=== PATIENT | male | born 1935 | race Caucasian/White ===

== ENCOUNTER 2022-04-12 22:18 | Observation (INO) | payer MEDICARE, OTHER ==
[2022-04-13] MEDS ORDERED: Benzonatate 100 MG CAP ONE (01:40)
[2022-04-13 04:24] VITALS: BMI 32.8
[2022-04-13] MEDS ORDERED: Sodium Chloride 0.9% 1,000 ML IV SCH (05:00)
[2022-04-13] MEDS ORDERED: Ondansetron ODT 4 MG TAB PO PRN (10:45)
[2022-04-13] MEDS ORDERED: Ondansetron PF 4 MG/2 ML Vial IVP PRN (10:45)
[2022-04-13] MEDS ORDERED: Acetaminophen 325 MG TAB PO PRN (10:45)
[2022-04-13] MEDS ORDERED: Ventolin HFA Inhaler 60 PUFF INHALER INH PRN (10:54)
[2022-04-13] MEDS: Enoxaparin Sodium 40 MG/0.4 ML SYRINGE SC SCH (11:13)
[2022-04-13] MEDS: Donepezil HCl 5 MG TAB PO SCH ×2 (11:14→17:33)
[2022-04-13] MEDS: Benzonatate 100 MG CAP PO PRN (11:14)
[2022-04-13 11:31] LABS: Hemoglobin 13.7 g/dL (13.5-17.5); Mean Corpuscular HGB CONC 34.3 g/dL (32.0-36.0); Mean Corpuscular Hemoglobin 33.8 pg (27.0-33.0); Mean Corpuscular Volume 98.5 fl (81.2-95.1); Mean Platelet Volume 10.3 fl (7.4-10.4); Platelet Count 196 10x3/uL (150-450); RBC Distribution Width 13.2 % (11.5-14.5); Red Blood Cell (RBC) Count 4.05 10x6/uL (4.32-5.72); White Blood Cell (WBC) Count 7.1 10x3/uL (3.5-10.5)
[2022-04-13 11:32] LABS: MDiff Complete? YES
[2022-04-13 11:54] LABS: ALT (SGPT) 16 U/L (8-55); AST (SGOT) 25 U/L (5-34); Albumin 3.8 g/dL (3.4-4.8); Alkaline Phosphatase 65 U/L (40-110); Anion Gap 10 mmol/L (10-20); BUN (Urea Nitrogen) 16 mg/dL (8.4-25.7); Bilirubin, Total 0.5 mg/dL (0.2-1.2); CRP (Inflammatory) 5.52 mg/dL (= or < 0.5); Calc. Creatinine Clearance 95 mL/min (70-130); Calcium 8.2 mg/dL (7.8-10.44); Carbon Dioxide 22 mmol/L (23-31); Chloride 107 mmol/L (98-107); Estimated GFR 88; Globulin 3.1 g/dL (2.4-3.5); Glucose 86 mg/dL (83-110); Potassium 4.1 mmol/L (3.5-5.1); Protein, Total 6.9 g/dL (5.8-8.1); Sodium 135 mmol/L (136-145)
[2022-04-13 13:53] LABS: Band 6 % (5-11); Lymphocytes 13 % (21-51); Monocytes 9 % (0-10); Neutrophil 69 % (42-75); Platelet Morphology Comment Appears Adequate; Reactive Lymphocytes 2 % (0-10)
[2022-04-13 13:54] LABS: RBC Morphology Normal
[2022-04-13] MEDS: busPIRone HCl 5 MG TAB PO SCH (22:10)
[2022-04-13] MEDS: Cholecalciferol 1,000 UNITS (25 MCG) TAB PO SCH (22:10)
[2022-04-13] MEDS: Azelastine 137 MCG/Spray 30 ML NS SCH (22:11)
[2022-04-13] MEDS: Fluticasone Propionate Nasal Spray 16 gm Bottle NASAL SCH (22:14)
[2022-04-13] MEDS: Triamcinolone 0.1% Dental Paste 5 GM TUBE TOP SCH (22:15)
[2022-04-14 04:55] LABS: Bilirubin Neg (Negative); Blood, Urine Negative (Negative); Clarity Clear (Clear); Glucose, Urine (Dipstick) Normal (Negative); Ketone, Urine Negative (Negative); Leukocyte Negative (Negative); Nitrite Negative (Negative); Protein, Urine (Dipstick) Negative (Neg-Trace); Specific Gravity, Urine 1.015 (1.005-1.030); Urobilinogen Normal mg/dL (Less than 2)
[2022-04-14 05:05] LABS: Bacteria/HPF None Seen HPF (None Seen); RBC/HPF None Seen HPF (0-3); Squamous Epithelial None Seen HPF (0-3); WBC/HPF None Seen HPF (0-3)
[2022-04-14 06:03] LABS: Hemoglobin 13.2 g/dL (13.5-17.5); Mean Corpuscular HGB CONC 35.8 g/dL (32.0-36.0); Mean Corpuscular Hemoglobin 34.2 pg (27.0-33.0); Mean Corpuscular Volume 95.6 fl (81.2-95.1); Mean Platelet Volume 10.4 fl (7.4-10.4); Platelet Count 174 10x3/uL (150-450); RBC Distribution Width 13.1 % (11.5-14.5); Red Blood Cell (RBC) Count 3.86 10x6/uL (4.32-5.72); White Blood Cell (WBC) Count 6.6 10x3/uL (3.5-10.5)
[2022-04-14 06:10] LABS: Anion Gap 12 mmol/L (10-20); BUN (Urea Nitrogen) 12 mg/dL (8.4-25.7); Calc. Creatinine Clearance 105 mL/min (70-130); Calcium 7.9 mg/dL (7.8-10.44); Carbon Dioxide 20 mmol/L (23-31); Chloride 110 mmol/L (98-107); Estimated GFR 90; Glucose 85 mg/dL (83-110); Potassium 3.6 mmol/L (3.5-5.1); Sodium 138 mmol/L (136-145)
[2022-04-14 06:19] LABS: MDiff Complete? YES
[2022-04-14 06:24] LABS: Lymphocytes 20 % (21-51); Monocytes 17 % (0-10); Neutrophil 62 % (42-75)
[2022-04-14] MEDS: Donepezil HCl 5 MG TAB PO SCH ×3 (08:42→16:46)
[2022-04-14] MEDS: Triamcinolone 0.1% Dental Paste 5 GM TUBE TOP SCH ×3 (08:42→22:27)
[2022-04-14] MEDS: Enoxaparin Sodium 40 MG/0.4 ML SYRINGE SC SCH (08:42)
[2022-04-14] MEDS: busPIRone HCl 5 MG TAB PO SCH ×2 (08:42→21:50)
[2022-04-14] MEDS: Zinc Sulfate 220 MG CAP PO SCH (08:42)
[2022-04-14] MEDS: Aspirin 81 mg Enteric Coated Tablet PO SCH (08:42)
[2022-04-14] MEDS: Ascorbic Acid 500 mg Chewable Tablet PO SCH (08:42)
[2022-04-14] MEDS ORDERED: [UNRECOGNIZED DRUG - OTHER] PO SCH (09:00)
[2022-04-14] MEDS: Cholecalciferol 1,000 UNITS (25 MCG) TAB PO SCH (21:50)
[2022-04-14] MEDS: Azelastine 137 MCG/Spray 30 ML NS SCH (22:27)
[2022-04-14] MEDS: Fluticasone Propionate Nasal Spray 16 gm Bottle NASAL SCH (22:27)
[2022-04-15 07:00] LABS: #Eosinphils 0.1 10x3/uL (0.0-0.5); #Monocytes 0.9 10x3/uL (0.0-1.1); #Neutrophils 4.1 10x3/uL (1.5-8.4); %Basophils 0.4 % (0.0-2.0); %Eosinophils 0.7 % (0.0-6.0); %Lymphocytes 25.8 % (18.0-47.0); %Monocytes 13.2 % (0.0-10.0); %Neutrophils 59.6 % (40.0-75.0); Hemoglobin 14.1 g/dL (13.5-17.5); Mean Corpuscular HGB CONC 35.6 g/dL (32.0-36.0); Mean Corpuscular Hemoglobin 33.6 pg (27.0-33.0); Mean Corpuscular Volume 94.3 fl (81.2-95.1); Mean Platelet Volume 10.5 fl (7.4-10.4); Platelet Count 200 10x3/uL (150-450); RBC Distribution Width 12.9 % (11.5-14.5); White Blood Cell (WBC) Count 6.9 10x3/uL (3.5-10.5)
[2022-04-15 07:15] LABS: Anion Gap 14 mmol/L (10-20); BUN (Urea Nitrogen) 13 mg/dL (8.4-25.7); Calc. Creatinine Clearance 104 mL/min (70-130); Calcium 8.3 mg/dL (7.8-10.44); Carbon Dioxide 20 mmol/L (23-31); Chloride 109 mmol/L (98-107); Estimated GFR 90; Glucose 82 mg/dL (83-110); Potassium 3.5 mmol/L (3.5-5.1); Sodium 139 mmol/L (136-145)
[2022-04-15] MEDS: Ascorbic Acid 500 mg Chewable Tablet PO SCH (12:06)
[2022-04-15] MEDS: Zinc Sulfate 220 MG CAP PO SCH (12:06)
[2022-04-15] MEDS: Aspirin 81 mg Enteric Coated Tablet PO SCH (12:06)
[2022-04-15] MEDS: Enoxaparin Sodium 40 MG/0.4 ML SYRINGE SC SCH (12:07)
[2022-04-15] MEDS: busPIRone HCl 5 MG TAB PO SCH ×2 (12:07→23:09)
[2022-04-15] MEDS: Donepezil HCl 5 MG TAB PO SCH ×3 (12:07→18:46)
[2022-04-15] MEDS: Triamcinolone 0.1% Dental Paste 5 GM TUBE TOP SCH ×2 (12:08→23:08)
[2022-04-15] MEDS: Azelastine 137 MCG/Spray 30 ML NS SCH (23:08)
[2022-04-15] MEDS: Fluticasone Propionate Nasal Spray 16 gm Bottle NASAL SCH (23:08)
[2022-04-15] MEDS: Cholecalciferol 1,000 UNITS (25 MCG) TAB PO SCH (23:09)
[2022-04-16] MEDS: Donepezil HCl 5 MG TAB PO SCH ×3 (10:32→18:35)
[2022-04-16] MEDS: busPIRone HCl 5 MG TAB PO SCH ×2 (10:34→20:50)
[2022-04-16] MEDS: Ascorbic Acid 500 mg Chewable Tablet PO SCH (10:37)
[2022-04-16] MEDS: Aspirin 81 mg Enteric Coated Tablet PO SCH (10:38)
[2022-04-16] MEDS: Zinc Sulfate 220 MG CAP PO SCH (10:38)
[2022-04-16] MEDS: Enoxaparin Sodium 40 MG/0.4 ML SYRINGE SC SCH (10:39)
[2022-04-16] MEDS: Triamcinolone 0.1% Dental Paste 5 GM TUBE TOP SCH ×2 (11:38→23:05)
[2022-04-16] MEDS: Cholecalciferol 1,000 UNITS (25 MCG) TAB PO SCH (20:50)
[2022-04-16] MEDS: Fluticasone Propionate Nasal Spray 16 gm Bottle NASAL SCH (22:00)
[2022-04-16] MEDS: Azelastine 137 MCG/Spray 30 ML NS SCH (22:00)
[2022-04-17] MEDS: Donepezil HCl 5 MG TAB PO SCH ×3 (07:30→17:49)
[2022-04-17] MEDS: Aspirin 81 mg Enteric Coated Tablet PO SCH (11:00)
[2022-04-17] MEDS: Zinc Sulfate 220 MG CAP PO SCH (11:00)
[2022-04-17] MEDS: Triamcinolone 0.1% Dental Paste 5 GM TUBE TOP SCH ×2 (11:00→21:44)
[2022-04-17] MEDS: Enoxaparin Sodium 40 MG/0.4 ML SYRINGE SC SCH (11:00)
[2022-04-17] MEDS: Ascorbic Acid 500 mg Chewable Tablet PO SCH (11:00)
[2022-04-17] MEDS: busPIRone HCl 5 MG TAB PO SCH ×2 (11:00→21:44)
[2022-04-17] MEDS: Benzonatate 100 MG CAP PO PRN (17:50)
[2022-04-17] MEDS: Cholecalciferol 1,000 UNITS (25 MCG) TAB PO SCH (21:44)
[2022-04-17] MEDS: Fluticasone Propionate Nasal Spray 16 gm Bottle NASAL SCH (21:44)
[2022-04-17] MEDS: Azelastine 137 MCG/Spray 30 ML NS SCH (21:44)
[2022-04-18] MEDS ORDERED: Amlodipine 5 MG TAB PO SCH (01:45)
[2022-04-18] MEDS: Enoxaparin Sodium 40 MG/0.4 ML SYRINGE SC SCH (08:43)
[2022-04-18] MEDS: Aspirin 81 mg Enteric Coated Tablet PO SCH (08:44)
[2022-04-18] MEDS: Donepezil HCl 5 MG TAB PO SCH ×3 (08:44→16:50)
[2022-04-18] MEDS: Zinc Sulfate 220 MG CAP PO SCH (08:44)
[2022-04-18] MEDS: busPIRone HCl 5 MG TAB PO SCH ×2 (08:44→21:26)
[2022-04-18] MEDS: Triamcinolone 0.1% Dental Paste 5 GM TUBE TOP SCH ×2 (08:44→21:27)
[2022-04-18] MEDS: Ascorbic Acid 500 mg Chewable Tablet PO SCH (08:44)
[2022-04-18] MEDS: Cholecalciferol 1,000 UNITS (25 MCG) TAB PO SCH (21:26)
[2022-04-18] MEDS: Fluticasone Propionate Nasal Spray 16 gm Bottle NASAL SCH (21:27)
[2022-04-18] MEDS: Azelastine 137 MCG/Spray 30 ML NS SCH (21:27)
[2022-04-19] MEDS: Ascorbic Acid 500 mg Chewable Tablet PO SCH (08:49)
[2022-04-19] MEDS: Enoxaparin Sodium 40 MG/0.4 ML SYRINGE SC SCH (08:49)
[2022-04-19] MEDS: busPIRone HCl 5 MG TAB PO SCH ×2 (08:49→21:19)
[2022-04-19] MEDS: Donepezil HCl 5 MG TAB PO SCH ×3 (08:49→15:50)
[2022-04-19] MEDS: Aspirin 81 mg Enteric Coated Tablet PO SCH (08:49)
[2022-04-19] MEDS: Zinc Sulfate 220 MG CAP PO SCH (08:50)
[2022-04-19] MEDS: Triamcinolone 0.1% Dental Paste 5 GM TUBE TOP SCH ×2 (08:50→21:18)
[2022-04-19] MEDS: Azelastine 137 MCG/Spray 30 ML NS SCH (21:18)
[2022-04-19] MEDS: Cholecalciferol 1,000 UNITS (25 MCG) TAB PO SCH (21:19)
[2022-04-19] MEDS: Fluticasone Propionate Nasal Spray 16 gm Bottle NASAL SCH (21:19)
[2022-04-20] MEDS: Enoxaparin Sodium 40 MG/0.4 ML SYRINGE SC SCH (09:11)
[2022-04-20] MEDS: Ascorbic Acid 500 mg Chewable Tablet PO SCH (09:12)
[2022-04-20] MEDS: Donepezil HCl 5 MG TAB PO SCH ×3 (09:12→17:15)
[2022-04-20] MEDS: Aspirin 81 mg Enteric Coated Tablet PO SCH (09:12)
[2022-04-20] MEDS: Zinc Sulfate 220 MG CAP PO SCH (09:12)
[2022-04-20] MEDS: busPIRone HCl 5 MG TAB PO SCH ×2 (09:12→21:48)
[2022-04-20] MEDS: Triamcinolone 0.1% Dental Paste 5 GM TUBE TOP SCH ×2 (11:37→21:48)
[2022-04-20] MEDS: Cholecalciferol 1,000 UNITS (25 MCG) TAB PO SCH (21:48)
[2022-04-20] MEDS: Azelastine 137 MCG/Spray 30 ML NS SCH (21:48)
[2022-04-20] MEDS: Fluticasone Propionate Nasal Spray 16 gm Bottle NASAL SCH (21:48)
[2022-04-21] MEDS: Aspirin 81 mg Enteric Coated Tablet PO SCH (08:44)
[2022-04-21] MEDS: Enoxaparin Sodium 40 MG/0.4 ML SYRINGE SC SCH (08:44)
[2022-04-21] MEDS: Zinc Sulfate 220 MG CAP PO SCH (08:45)
[2022-04-21] MEDS: busPIRone HCl 5 MG TAB PO SCH (08:45)
[2022-04-21] MEDS: Donepezil HCl 5 MG TAB PO SCH ×2 (08:45→14:05)
[2022-04-21] MEDS: Ascorbic Acid 500 mg Chewable Tablet PO SCH (08:45)
[2022-04-21] MEDS: Triamcinolone 0.1% Dental Paste 5 GM TUBE TOP SCH (12:59)
[2022-04-21 13:26] VITALS: BP 108/58; TEMP 96.7
== END 2022-04-21 14:35 | disposition home or self-care (01) ==
LOC: CSHERS 22:18 → CSHTELE 04-13 01:59
PROVIDERS: ADMIT Family Medicine; ATTEND Family Medicine
DX: U07.1 COVID-19 (principal); R53.1 Weakness; R63.0 Anorexia; F03.90 Unspecified dementia, unspecified severity, without behavioral disturbance, psychotic disturbance, mood disturbance, and anxiety; Z95.0 Presence of cardiac pacemaker; Z79.82 Long term (current) use of aspirin; Z79.899 Other long term (current) drug therapy; Z88.2 Allergy status to sulfonamides; Z88.8 Allergy status to other drugs, medicaments and biological substances; Z86.73 Personal history of transient ischemic attack (TIA), and cerebral infarction without residual deficits; Z87.891 Personal history of nicotine dependence; Z68.32 Body mass index [BMI] 32.0-32.9, adult
CPT/HCPCS: 71045; 80048 ×2; 80053; 81001; 85025 ×3; 85379; 86140; 93005; 94760 ×4; 96360; 96372 ×9; 97110 ×2; 97116 ×7; 97530 ×3; 97535; 99285; G0378 ×9; 36415; J1650; J7050